=== PATIENT | female | born 1990 | race Two or more races ===

== ENCOUNTER 2022-11-24 | Outpatient (CLI) | payer OTHER | END 2022-11-24 00:15 | disposition home or self-care (01) | LOC: PPH VACUNA | PROVIDERS: ATTEND Emergency Medicine Pediatric Emergency Medicine | DX: Z23 Encounter for immunization (principal) ==

== ENCOUNTER 2023-04-13 14:36 | Emergency (ER) | payer OTHER ==
[~2023-04-13] VITALS: Ht 160 cm; Wt 88.5 kg
[2023-04-13 17:48] LABS: HEMATOCRIT 41.1 % (36.0-45.00); HEMOGLOBIN 14.3 g/dL (12.0-15.00); MEAN CELL VOLUME 86.6 fL (80.00-100.00); MEAN CORPUSCULAR HEMOGLOBIN 30.1 pg (27.00-32.0); MEAN CORPUSCULAR HGB CONC 34.7 g/dl (32.0-36.0); PLATELET COUNT 220 K/uL (150-450); RED BLOOD COUNT 4.74 M/uL (4.00-6.00); RED CELL DISTRIBUTION WIDTH 13.4 % (11.5-14.5)
[2023-04-13 18:12] LABS: CREATININE SERUM 0.93 mg/dL (0.55-1.02); GFR 70.32; POTASSIUM 3.59 mEq/L (3.5-5.1)
== END 2023-04-13 18:58 | disposition home or self-care (01) ==
LOC: ER 14:37
PROVIDERS: General Practice
DX: M54.9 Dorsalgia, unspecified (principal); R53.1 Weakness; R53.81 Other malaise; Z20.822 Contact with and (suspected) exposure to COVID-19

== ENCOUNTER 2023-06-26 14:12 | Emergency (ER) | payer OTHER ==
[~2023-06-26] VITALS: Ht 160 cm; Wt 88.9 kg
[2023-06-26] MEDS ORDERED: MEDROLPACK PO (19:08)
== END 2023-06-26 19:24 | disposition home or self-care (01) ==
LOC: ER 14:12
DX: M70.862 Other soft tissue disorders related to use, overuse and pressure, left lower leg (principal); M70.861 Other soft tissue disorders related to use, overuse and pressure, right lower leg; Y93.B9 Activity, other involving muscle strengthening exercises